=== PATIENT | female | born 1955 | race Caucasian/White ===

== ENCOUNTER 2017-02-15 17:19 | Emergency (ER) | payer SELFPAY ==
[~2017-02-15] VITALS: Ht 167.6 cm; Wt 61.7 kg
[2017-02-15 17:45] VITALS: BP 118/75
--- NOTE | 2017-02-15 18:20 | Emergency Room Report ---
History of Present Illness General Chief Complaint: General Complaint Source: Patient Present Illness HPI Patient has had a previous right-sided mastectomy 8 months ago at [facility] Patient reports that she has undergone chemotherapy and radiation Patient just recently had radiation 2 weeks ago And has noticed increased redness to the lower surgical site Patient was at [facility] yesterday in the emergency room was given oral medications Patient also reports that she was in contact with her primary physician who gave her an appointment for end of February Denies any fevers or chills Patient has pain in that area and also lower extremity Reports that she was under the care of pain management However has now been taken off medications Allergies: Coded Allergies: No Known Allergies (Unverified , 02/15/17) Patient History Past Medical History: see triage record Pertinent Family History: none : 5 Para: 5 Reviewed Nursing Documentation: PMH: Agreed, PSxH: Agreed Nursing Documentation-PMH Hx Cancer: Yes - Right breast-Radical mastectomy and lymphadenopathy Review of Systems All Other Systems: negative except mentioned in HPI Physical Exam Vital Signs Date Time Temp Pulse Resp B/P Pulse Ox O2 Delivery O2 Flow Rate FiO2 02/15/17 17:23 97.9 101 16 107/67 100 Room Air Sp02 EP Interpretation: reviewed, normal General Appearance: well appearing, no apparent distress Head: normocephalic, atraumatic Eyes: bilateral eye EOMI, bilateral eye PERRL ENT: hearing grossly normal, normal pharynx, TMs + canals normal, uvula midline Neck: full range of motion, supple, no meningismus, no bony tend Respiratory: lungs clear, normal breath sounds, no rhonchi, no respiratory distress, no retraction, no accessory muscle use Cardiovascular #1: normal peripheral pulses, regular rate, rhythm, no edema, no gallop, no JVD, no murmur Gastrointestinal: normal bowel sounds, non tender, soft, no mass, no organomegaly, non-distended, no guarding, no hernia, no pulsatile mass, no rebound Genitourinary: no CVA tenderness Musculoskeletal: normal inspection Neurologic: oriented x3, responsive, pump operator III-XII nml as tested, motor strength/ tone normal, sensory intact Psychiatric: mood/affect normal Skin: other - Area of erythema right lower mastectomy site, no obvious fluctuance no obvious discharge Lymphatic: normal inspection, no adenopathy Medical Decision Making Diagnostic Impression: Primary Impression: Cellulitis ER Course Multiple differentials considered At this time patient's findings appear to be likely in line with early cellulitis Patient reports contact with her primary physician, [facility] just pain management physician, and surgeon At this time patient was provided with IV antibiotics will require to be continued on oral antibiotics Followup with surgeon is highly recommended Patient stable for close outpatient followup , Last Vital Signs Date Time Temp Pulse Resp B/P Pulse Ox O2 Delivery O2 Flow Rate FiO2 02/15/17 17:23 97.9 101 16 107/67 100 Room Air Status: improved Disposition: HOME, SELF-CARE Condition: Improved Scripts Hydrocodone Bit/Acetaminophen 10-325* (NORCO 10-325*) 1 Each Tablet 1 TAB ORAL Q6H Y for For Pain, #10 TAB 0 Refills PRN PAIN Prov: BEATRICE VENTURA D.O. 02/15/17 Trimethoprim/Sulfamethoxazole 160/800* (BACTRIM DS TABLET*) 1 Each Tablet 1 TAB ORAL Q12H, #14 TAB 0 Refills Prov: BEATRICE VENTURA D.O. 02/15/17 Cephalexin* (KEFLEX*) 500 Mg Capsule 500 MG ORAL Q6H, #28 CAP 0 Refills Prov: BEATRICE VENTURA D.O. 02/15/17 Additional Instructions: Patient is provided with the discharge instructions notified to follow up with primary doctor in the next 2-3 days otherwise return to the er with any worsening symptoms. Please note that this report is being documented using [employer] technology. This can lead to erroneous entry secondary to incorrect interpretation by the dictating instrument. BEATRICE VENTURA D.O. Feb 15, 2017 18:20
[2017-02-15] MEDS ORDERED: cefTRIAXone 1 GM in NS 55 ML IVPB ONE (18:30)
[2017-02-15] MEDS ORDERED: Morphine Sulfate 4mg/ml Inj IVP ONE ×2 (18:30→21:00)
[2017-02-15] MEDS ORDERED: Vancomycin 1 GM in NS 275 ML IVPB ONE (18:30)
[2017-02-15] MEDS ORDERED: Vancomycin 1gm inj IVPB ONE (18:39)
[2017-02-15] MEDS ORDERED: BACTRIM DS TAB1 EAC1 ORAL (19:43)
[2017-02-15] MEDS ORDERED: KEFLEX500 MG ORAL (19:43)
[2017-02-15] MEDS ORDERED: NORCO 10-325 T1 EACH ORAL (21:21)
[2017-02-15 21:26] VITALS: BP 103/52
== END 2017-02-15 21:33 | disposition home or self-care (01) ==
LOC: EMR 19:20
DX: N61.0 Mastitis without abscess (principal); Z90.11 Acquired absence of right breast and nipple; Z85.3 Personal history of malignant neoplasm of breast
CPT/HCPCS: 96360; 96374; 96375; 99284; J0696; J2270; J2405; J3370; J7050